=== PATIENT | male | born 1980 | race Caucasian/White ===

== ENCOUNTER 2020-06-13 11:42 | Emergency (ER) | payer BC ==
[2020-06-13] MEDS ORDERED: Diphtheria,Pertussis(Acell),Tetanus Vaccine 0.5 ML Syringe IM ONE (11:46)
[2020-06-13] MEDS ORDERED: Lidocaine 1% PF 2 ML SDV INJECT ONE (11:46)
[2020-06-13] MEDS ORDERED: Bacitracin Oint 1 GM U/D Packet TOP ONE (11:46)
[2020-06-13] MEDS ORDERED: Cephalexin 500 MG Cap PO ONE (11:51)
--- NOTE | 2020-06-13 11:51 | EDM.PDOC ---
ED HPI GENERAL MEDICAL PROBLEM - General Chief Complaint: Laceration Stated Complaint: RT HAND CUT Time Seen by Provider: 06/13/20 11:45 Source of Information: Reports: Patient History Limitations: Reports: No Limitations - History of Present Illness INITIAL COMMENTS - FREE TEXT/NARRATIVE: HISTORY AND PHYSICAL: History of present illness: Patient is a 40-year-old male who presents to the emergency room with complaints of a laceration to the right lateral forearm on 06/10/20. He states he was working with some cut tin when it grazed his arm resulting in the laceration. He states he put a pressure dressing on it and tried to remove it today and the area "squirted out of me". He is concerned he may need stitches. Unsure of his last tetanus update. He denies any other extremity involvement. Offers no systemic complaints. Review of systems: As per history of present illness and below otherwise all systems reviewed and negative. Past medical history: As per history of present illness and as reviewed below otherwise noncontributory. Surgical history: As per history of present illness and as reviewed below otherwise noncontributory. Social history: See social history for further information Family history: As per history of present illness and as reviewed below otherwise noncontributory. Physical exam: General: Well developed and well nourished. Alert and orientated x 3. Nontoxic in appearance and in no acute distress. Vital signs are stable and have been reviewed by me. Nursing notes were reviewed. HEENT: Atraumatic, normocephalic, pupils equal and reactive bilaterally, negative for conjunctival pallor or scleral icterus, mucous membranes moist, TMs normal bilaterally, throat clear, neck supple, nontender, trachea midline. No drooling or trismus noted. No meningeal signs. No hot potato voice noted. Lungs: Clear to auscultation, breath sounds equal bilaterally, chest nontender. Normal work of breathing, no accessory muscles used. Heart: S1S2, regular rate and rhythm without overt murmur Abdomen: Soft, nondistended, nontender. Skin: 1.5 cm superficial laceration to right lateral proximal forearm. Mild oozing of blood. Mild erythema around the site. No fluctuance or induration. Remaining skin is intact, warm, dry. No lesions or rashes noted. Hematologic: No petechiae or purpra. Mucosa appropriate color and normal nail bed color and refill. Extremities: Moves all extremities per self without difficulty or deficits, negative for cords or calf pain. Neurovascular unremarkable. Neuro: Awake, alert, oriented. Cranial nerves II through XII unremarkable. Cerebellum unremarkable. Motor and sensory unremarkable throughout. Exam nonfocal. Psychiatric: Mood and affect are appropriate. Normal thought process. Answering questions appropriately. Notes: The laceration site is 3 days old. There is some mild erythema surrounding the laceration. Area was thoroughly cleansed with chlorhexidine and wound wash. There is still some mild oozing of blood from the site without pressure. Surgicel applied over the site with nonstick dressing. Will place of Keflex. I have talked with the patient about today's findings, in addition to providing specific details for plan of care. Reassessment at the time of disposition demonstrates that the patient is in no acute distress. The patient is stable for discharge, counseling was provided and we discussed in great detail signs and symptoms that would prompt them to return to the Emergency Department. Medication, follow up and supportive care measures were reviewed and discussed. Voices understanding and is agreeable to plan of care. Denies any further questions or concerns at this time. Diagnostics: None Therapeutics: Tdap, Keflex, Nonstick dressing Prescription: Keflex Impression: Laceration Plan: 1. The laceration is to far post injury to suture shut due to the increased risk of infection. Keep the dressing we have put on for the next 48 hours. Keep the area clean and dry. Continue to monitor for signs of infection. Take the antibiotic as directed. 2. Tylenol and/or ibuprofen as needed for pain management. 3. Please follow-up with your primary care provider in the next 1-2 days. Return to the ED as needed and as discussed. Definitive disposition and diagnosis as appropriate pending reevaluation and review of above. - Related Data Allergies Allergy/AdvReac Type Severity Reaction Status Date / Time No Known Allergies Allergy Verified 06/13/20 11:48 Home Meds: Home Meds . [No Known Home Meds] 06/13/20 [History] ED ROS GENERAL - Review of Systems Review Of Systems: Comprehensive ROS is negative, except as noted in HPI. ED EXAM, SKIN/RASH Exam: See Below (See dictation) Course - Vital Signs Last Recorded V/S: Last Vital Signs Temp 96.2 F L 06/13/20 11:51 Pulse 77 06/13/20 11:51 Resp 16 06/13/20 11:51 BP 125/80 06/13/20 11:51 Pulse Ox 98 06/13/20 11:51 - Orders/Labs/Meds Orders: Active Orders 24 hr Category Date Time Status Vaccines to be Administered [RC] PER UNIT ROUTINE Care 06/13/20 11:46 Ordered Meds: Medications Discontinued Medications Generic Name Dose Route Start Last Admin Trade Name Abad PRN Reason Stop Dose Admin Bacitracin 1 dose 06/13/20 11:46 Bacitracin Oint 1 Gm TOP 06/13/20 11:47 ONETIME ONE Cephalexin 500 mg 06/13/20 11:51 Keflex PO 06/13/20 11:52 ONETIME ONE Diphtheria/Tetanus/Acell Pertussis 0.5 ml 06/13/20 11:46 Boostrix IM 06/13/20 11:47 .ONCE ONE Lidocaine HCl 4 ml 06/13/20 11:46 Xylocaine-Mpf 1% INJECT 06/13/20 11:47 ONETIME ONE Departure - Departure Time of Disposition: 12:17 Disposition: Home, Self-Care 01 Clinical Impression: Laceration - Discharge Information Instructions: Laceration Care, Adult, [id number] Referrals: Ladonna Dale DO [Primary Care Provider] - Forms: ED Department Discharge Additional Instructions: The following information is given to patients seen in the emergency department who are being discharged to home. This information is to outline your options for follow-up care. We provide all patients seen in our emergency department with a follow-up referral. The need for follow-up, as well as the timing and circumstances, are variable depending upon the specifics of your emergency department visit. If you don't have a primary care physician on staff, we will provide you with a referral. We always advise you to contact your personal physician following an emergency department visit to inform them of the circumstance of the visit and for follow-up with them and/or the need for any referrals to a consulting specialist. The emergency department will also refer you to a specialist when appropriate. This referral assures that you have the opportunity for follow-up care with a specialist. All of these measure are taken in an effort to provide you with optimal care, which includes your follow-up. Under all circumstances we always encourage you to contact your private physician who remains a resource for coordinating your care. When calling for follow-up care, please make the office aware that this follow-up is from your recent emergency room visit. If for any reason you are refused follow-up, please contact the [facility] Emergency Department at and asked to speak to the emergency department charge nurse. [facility] [address] [place] [address] [facility] [address] [place] [address] Thank you for choosing the [facility] emergency department in [place] for your medical needs today. It was a pleasure caring for you. Today you were seen in the emergency department for laceration. 1. The laceration is to far post injury to suture shut due to the increased risk of infection. Keep the dressing we have put on for the next 48 hours. Keep the area clean and dry. Continue to monitor for signs of infection. Take the antibiotic as directed. 2. Tylenol and/or ibuprofen as needed for pain management. 3. Please follow-up with your primary care provider in the next 1-2 days. Return to the ED as needed and as discussed. Definitive disposition and diagnosis as appropriate pending reevaluation and review of above. Sepsis Event Note (ED) - Focused Exam Vital Signs: Vital Signs Temp Pulse Resp BP Pulse Ox 06/13/20 11:51 96.2 F L 77 16 125/80 98 - My Orders Last 24 Hours: My Active Orders 06/13/20 11:46 Vaccines to be Administered [RC] PER UNIT ROUTINE - Assessment/Plan Last 24 Hours: My Active Orders 06/13/20 11:46 Vaccines to be Administered [RC] PER UNIT ROUTINE
== END 2020-06-13 13:07 | disposition home or self-care (01) ==
LOC: MW.ED 11:42
DX: S51.811A Laceration without foreign body of right forearm, initial encounter (principal); Z23 Encounter for immunization; W26.8XXA Contact with other sharp object(s), not elsewhere classified, initial encounter
CPT/HCPCS: 90471; 99282; A9270

== ENCOUNTER 2023-09-10 09:31 | Emergency (ER) | payer BC ==
[2023-09-10] MEDS: Tetracaine HCl/PF 0.5% 4 ML Bottle EYEBOTH ONE (10:23)
== END 2023-09-10 10:40 | disposition home or self-care (01) ==
LOC: MW.ED 09:31
DX: L03.211 Cellulitis of face (principal)
CPT/HCPCS: 99282; 99283; J3490